=== PATIENT | female | born 1965 | race Caucasian/White ===

== ENCOUNTER 2017-05-29 21:10 | Emergency (ER) | payer BC ==
[2017-05-29 22:21] LABS: UA SPECIFIC GRAVITY <=1.005 (1.005-1.035); microscopic required? YES; urine erythrocyte NEGATIVE (NEGATIVE)
[2017-05-29 22:24] LABS: BASOPHIL % 0.4 % (0-2); RED CELL DISTRIBUTION WIDTH 13.6 % (11.5-14.5)
[2017-05-29 22:25] LABS: PLATELET COUNT 412 x10^3mcL (130-400)
[2017-05-29 22:33] LABS: CALCIUM 9.2 mg/dL (8.5-10.1); CARBON DIOXIDE 25.8 mmol/L (21-32); CHLORIDE SERUM 101 mmol/L (98-107); CREATININE SERUM 0.7 mg/dL (0.6-1.0); GFR1 > 60 mL/min; GLUCOSE SERUM 117 mg/dL (74-106); POTASSIUM SERUM 3.6 mmol/L (3.5-5.1); SODIUM SERUM 137 mmol/L (136-145)
[2017-05-29 22:37] LABS: ALKALINE PHOSPHATASE 120 U/L (46-116); ALT/SGPT 55 U/L (14-59); AST/SGOT 32 U/L (15-37); BILIRUBIN TOTAL 1.5 mg/dL (0.20-1.00)
[2017-05-29 22:38] LABS: TOTAL PROTEIN, SERUM 8.7 g/dL (6.4-8.2)
[2017-05-29 22:46] LABS: T3 TOTAL 1.01 ng/mL
[2017-05-29 22:48] LABS: FREE T4 0.93 ng/dL (0.76-1.46); T4(THYROXINE) 8.7 ug/dL (4.7-13.3)
[2017-05-30 00:13] VITALS: BP 142/88
== END 2017-05-30 00:13 | disposition home or self-care (01) ==
LOC: ED 21:10
PROVIDERS: Specialist
DX: N39.0 Urinary tract infection, site not specified (principal); G47.00 Insomnia, unspecified
CPT/HCPCS: 36415; 82962; 84439; Q0092